=== PATIENT | female | born 1980 | race Two or more races ===

== ENCOUNTER 2016-08-20 17:05 | Emergency (ER) | payer OTHER ==
[~2016-08-20] VITALS: Ht 167.6 cm; Wt 81.6 kg
[~2016-08-20 17:05] MED LIST: ACYCLOVIR400 MG ORAL; AMOXICILLIN500 MG ORAL; ATORVASTATIN CA20 MG ORAL; CIPROFLOXACIN500 M2 ORAL; IBUPROFEN600 M1 PO; IBUPROFEN600 MG ORAL; LEVAQUIN500 MG ORAL; NKM; OFLOXACIN400 MG PO; PHENAZOPYRIDIN200 MG ORAL; VERAPAMIL2.5 MG/1 M IV
[2016-08-20 18:15] LABS: APPEARANCE,URINE CLEAR; KETONES,URINE NEGATIVE (NEGATIVE); LEUKOCYTE ESTERASE ,URINE 1+ (NEGATIVE); NITRITE,URINE NEGATIVE (NEGATIVE); PH,URINE 7 (4.5-8.0); PROTEIN,URINE NEGATIVE (NEGATIVE); UROBILINOGEN,URINE NORMAL MG/DL (0.0-1.0)
[2016-08-20 18:36] LABS: RBC,URINE 0-2 /HPF (0 - 2)
[2016-08-20 18:37] LABS: BACTERIA,URINE FEW /HPF; SQUAMOUS EPITHELIAL CELL,UR FEW /LPF (NONE/OCC)
[2016-08-20] MEDS ORDERED: NITROFURANTOIN100 M2 ORAL (18:40)
[2016-08-20 18:45] VITALS: BP 130/80
--- NOTE | 2016-08-20 22:18 | Emergency Room Report ---
History of Present Illness General Chief Complaint: Vaginal Present Illness HPI The patient is a 36-year-old female presenting for possible vaginal infection. The patient states that she first noticed dysuria, lower abdominal pain, and white discharge 2 days prior. Patient also admits to increased urinary frequency. The lower bowel pain is described as a 3/10 dull ache it does not radiate. Patient denies other symptoms including nausea, vomiting, fever, chills , flank pain, vaginal itching. (RANGEL BARNETT P.A.) Allergies: Coded Allergies: METRONIDAZOLE (Unverified Adverse Reaction, Unknown, 04/10/16) Patient History Past Medical History: see triage record Pertinent Family History: none Reviewed Nursing Documentation: PMH: Agreed, PSxH: Agreed (RANGEL BARNETT P.Elham) Nursing Documentation-PMH Hx Diabetes: No (RANGEL BARNETT.A.) Review of Systems All Other Systems: negative except mentioned in HPI (RANGEL BARNETT P.A.) Physical Exam Vital Signs Date Time Temp Pulse Resp B/P Pulse Ox O2 Delivery O2 Flow Rate FiO2 08/20/16 17:18 97.5 80 20 122/72 99 Room Air Sp02 EP Interpretation: reviewed, normal General Appearance: no apparent distress, alert, GCS 15, non-toxic Head: normocephalic, atraumatic Eyes: bilateral eye PERRL, bilateral eye normal inspection ENT: hearing grossly normal, normal pharynx, no angioedema, normal voice Gastrointestinal: normal bowel sounds, non tender, soft, non-distended, no guarding, no rebound Rectal: deferred Genitourinary: normal inspection, no CVA tenderness Musculoskeletal: back normal, gait/station normal, normal range of motion, non- tender Neurologic: alert, oriented x3, responsive, motor strength/tone normal, sensory intact, speech normal Psychiatric: judgement/insight normal, memory normal, mood/affect normal, no suicidal/homicidal ideation Skin: normal color, no rash, warm/dry, well hydrated Lymphatic: no adenopathy (RANGEL BARNETT P.A.) Medical Decision Making PA Attestation Dr. Nolen is my supervising physician. Patient management was discussed with my supervising physician (RANGEL BARNETT P.ALatrice) Diagnostic Impression: Primary Impression: UTI (lower urinary tract infection) ER Course The patient is a 36-year-old female presenting for possible vaginal infection. Differential diagnosis considered but not limited to: UTI, vaginitis, pyelonephritis, pyelonephrosis, PID, ectopic PE: Vitals WNL. NAD. Abdomen: Normal appearance. Non distended. No ecchymosis. Normal BS. Non TTP. No McBurney point tenderness. No guarding. No CVA tenderness Labs: Urinalysis shows 1+ leuk esterase with few bacteria Pt will be treated for UTI. ER precautions are given and will FU with PMD Laboratory Tests Test 08/20/16 17:40 Urine Color Pale yellow Urine Appearance Clear Urine pH 7 (4.5-8.0) Urine Specific Green[place] 1.015 (1.005-1.035) Urine Protein Negative (NEGATIVE) Urine Glucose (UA) Negative (NEGATIVE) Urine Ketones Negative (NEGATIVE) Urine Occult Blood 1+ (NEGATIVE) H Urine Nitrite Negative (NEGATIVE) Urine Bilirubin Negative (NEGATIVE) Urine Urobilinogen Normal MG/DL (0.0-1.0) Urine Leukocyte Esterase 1+ (NEGATIVE) H Urine RBC 0-2 /HPF (0 - 2) Urine WBC 2-4 /HPF (0 - 2) Urine Squamous Epithelial Cells Few /LPF (NONE/OCC) Urine Bacteria Few /HPF (NONE) Urine HCG, Qualitative Negative Lab Results Impression Urinalysis shows 1+ leuk esterase with few bacteria neg preg (NUVIAANXIY P.A.) Last Vital Signs Date Time Temp Pulse Resp B/P Pulse Ox O2 Delivery O2 Flow Rate FiO2 08/20/16 18:45 98.3 82 18 130/80 98 Room Air Status: improved (RANGEL BARNETT P.A.) Disposition: HOME, SELF-CARE Condition: Improved Scripts Nitrofurantoin Monohyd/M-Cryst* (MACROBID 100 MG*) 100 Mg Capsule 100 MG ORAL EVERY 12 HOURS, #14 CAP Prov: RANGEL BARNETT P.A. 08/20/16 Referrals: [facility],REFERRING (PCP) Patient Instructions: Dysuria Additional Instructions: I discussed my findings with the patient. All questions and concerns have been answered. Treatment and medication compliance have been addressed. I advised the patient that they need to follow up with PMD in 3-5 days. Return to ED if symptoms worsen, new symptoms arise, or if needed for any reason. Patient verbalized understanding of discharge instructions. RANGEL BARNETT Aug 20, 2016 22:18 Alexis Nolen M.D. Aug 22, 2016 02:19
== END 2016-08-20 18:50 | disposition home or self-care (01) ==
LOC: EMR 17:55
DX: N39.0 Urinary tract infection, site not specified (principal); Z88.8 Allergy status to other drugs, medicaments and biological substances
CPT/HCPCS: 81003; 81025; 99284

== ENCOUNTER 2017-09-07 14:58 | Emergency (ER) | payer MEDICAID, OTHER ==
[~2017-09-07] VITALS: Ht 167.6 cm; Wt 81.6 kg
[~2017-09-07 14:58] MED LIST changes: +NITROFURANTOIN100 M2 ORAL
[2017-09-07] MEDS ORDERED: NKM (15:06)
[2017-09-07] MEDS ORDERED: TESSALON PERLE100 MG ORAL (15:20)
[2017-09-07] MEDS ORDERED: IBUPROFEN600 MG ORAL (15:20)
[2017-09-07] MEDS ORDERED: Dexamethasone 4mg/ml vial IM ONE (15:30)
[2017-09-07 15:32] VITALS: BP 119/75
--- NOTE | 2017-09-07 15:43 | Emergency Room Report ---
History of Present Illness General Chief Complaint: Upper Respiratory Illness Source: Patient Present Illness HPI 37-year-old female presents with sore throat cough and runny nose for 2 days. States sore throat, +mild dry cough. Runny nose with clear nasal discharge. Pain with swallowing however has still been able to eat/drink. No change in voice. No pain with extension/movement of neck. Denies fever or chills. +sick contacts. Allergies: Coded Allergies: METRONIDAZOLE (Unverified Adverse Reaction, Unknown, 04/10/16) Patient History Past Medical History: see triage record Past Surgical History: none Pertinent Family History: none Now: No Reviewed Nursing Documentation: PMH: Agreed; PSxH: Agreed Nursing Documentation-PMH Past Medical History: No History, Except For Hx Diabetes: No Review of Systems All Other Systems: negative except mentioned in HPI Physical Exam Vital Signs Date Time Temp Pulse Resp B/P (MAP) Pulse Ox O2 Delivery O2 Flow Rate FiO2 09/07/17 15:01 98.7 69 18 119/75 96 Room Air 98.8 Sp02 EP Interpretation: reviewed, normal General Appearance: alert, GCS 15, non-toxic, mild distress Head: normocephalic, atraumatic Eyes: bilateral eye normal inspection, bilateral eye PERRL, bilateral eye EOMI ENT: no angioedema, uvula midline, pharyngeal erythema, other - No exudates Neck: normal inspection, full range of motion, supple Respiratory: normal inspection, lungs clear, normal breath sounds, no respiratory distress, no retraction, no wheezing, speaking full sentences, chest symmetrical Cardiovascular #1: normal inspection, regular rate, rhythm, no edema, normal capillary refill Cardiovascular #2: 2+ radial (R), 2+ radial (L) Gastrointestinal: normal inspection, non tender, soft, non-distended, no guarding Musculoskeletal: normal inspection, back normal, normal range of motion, non- tender Neurologic: normal inspection, alert, oriented x3, responsive, motor strength/ tone normal, sensory intact, normal gait, speech normal Psychiatric: normal inspection, judgement/insight normal, memory normal Skin: normal inspection, normal color, no rash, warm/dry, well hydrated, normal turgor Medical Decision Making Diagnostic Impression: Primary Impression: Pharyngitis Additional Impression: Upper respiratory infection ER Course 37-year-old female with sore throat cough and runny nose DDX: Viral vs. infectious mononucleosis vs. bacterial pharyngitis vs. allergies Other serious causes such as CARDIOLOGY NURSE PRACTITIONER / RPA / deep space neck infection history/physical most consistent with viral pharyngitis Plan: Motrin, Decadron. Abx not indicated at this time ER course: Patient remains stable in ED. Pt states improvement of pain with motrin. Disposition: Patient will be discharged to home. Patient will follow up with primary care doctor within 5 days. Strict return precautions discussed with patient such as worsening throat pain/swelling, dysphagia, high fever or chills, shortness of breath, abdominal pain, which may indicate severe illness. Patient verbalized understanding and agreed with plan. Please note that this Emergency Department Report was dictated using [employer] car inspector technology software, occasionally this can lead to erroneous entry secondary to interpretation by the dictation equipment. Last Vital Signs Date Time Temp Pulse Resp B/P (MAP) Pulse Ox O2 Delivery O2 Flow Rate FiO2 09/07/17 15:32 98.7 18 119/75 96 Room Air 209.7 09/07/17 15:11 69 Disposition: HOME, SELF-CARE Condition: Improved Scripts Ibuprofen* (MOTRIN*) 600 Mg Tablet 600 MG ORAL Q8H PRN for For Pain, #30 TAB 0 Refills Prov: Rosalva Bledsoe M.D. 09/07/17 Benzonatate* (TESSALON PERLE*) 100 Mg Capsule 100 MG ORAL THREE TIMES A DAY, #21 PERLE Prov: Rosalva Bledsoe M.D. 09/07/17 Patient Instructions: Upper Respiratory Infection, Adult Rosalva Bledsoe M.D. Sep 07, 2017 15:43
== END 2017-09-07 15:40 | disposition home or self-care (01) ==
LOC: EMR 15:37
DX: J02.9 Acute pharyngitis, unspecified (principal); J06.9 Acute upper respiratory infection, unspecified; Z88.8 Allergy status to other drugs, medicaments and biological substances
CPT/HCPCS: 96372; 99284; J1100

== ENCOUNTER 2017-11-26 14:57 | Emergency (ER) | payer MEDICAID ==
[~2017-11-26] VITALS: Ht 167.6 cm; Wt 81.6 kg
[~2017-11-26 14:57] MED LIST changes: +TESSALON PERLE100 MG ORAL
[2017-11-26 15:10] VITALS: BP 161/89
[2017-11-26] MEDS ORDERED: LORazepam Inj 2mg/ml 1ml IV ONE (15:30)
[2017-11-26] MEDS ORDERED: Isovue-370 150ml vial INJ PRN (15:30)
--- NOTE | 2017-11-26 15:30 | Emergency Room Report ---
History of Present Illness General Chief Complaint: Chest Pain Source: Patient Present Illness HPI Patient present with complaints of upper chest pain going up to the upper lung area and now feels radiation to the right neck Pain came on 2 days ago however has been worsening Patient feels more short of breath Denies any back or flank pain However she does describe pleurisy with the chest pain Denies any vomiting or diarrhea denies any fevers or chills Denies any recent travel or calf pain Denies any leg swelling Allergies: Coded Allergies: METRONIDAZOLE (Unverified Adverse Reaction, Unknown, 04/10/16) Patient History Past Medical History: see triage record Pertinent Family History: none Last Menstrual Period: 11/26/17 Now: No Reviewed Nursing Documentation: PMH: Agreed; PSxH: Agreed Nursing Documentation-PMH Past Medical History: No History, Except For Hx Diabetes: No Review of Systems All Other Systems: negative except mentioned in HPI Physical Exam Vital Signs Date Time Temp Pulse Resp B/P (MAP) Pulse Ox O2 Delivery O2 Flow Rate FiO2 11/26/17 15:06 98.4 71 16 140/98 96 Room Air 98.4 Sp02 EP Interpretation: reviewed, normal General Appearance: mild distress - Uncomfortable Head: normocephalic, atraumatic Eyes: bilateral eye PERRL, bilateral eye EOMI ENT: hearing grossly normal, normal pharynx, TMs + canals normal, uvula midline Neck: full range of motion, supple, no meningismus, no bony tend Respiratory: lungs clear, normal breath sounds, no rhonchi, no respiratory distress, no retraction, no accessory muscle use Cardiovascular #1: normal peripheral pulses, regular rate, rhythm, no edema, no gallop, no JVD, no murmur Gastrointestinal: normal bowel sounds, non tender, soft, no mass, no organomegaly, non-distended, no guarding, no hernia, no pulsatile mass, no rebound Genitourinary: no CVA tenderness Musculoskeletal: normal inspection Neurologic: oriented x3, responsive, hearing dog trainer III-XII nml as tested, motor strength/ tone normal, sensory intact Psychiatric: mood/affect normal Skin: normal color, no rash, warm/dry, palpation normal Lymphatic: normal inspection, no adenopathy Medical Decision Making Diagnostic Impression: Primary Impression: Chest pain ER Course Patient is a fairly complex patient with multiple differential to consideration including but not limited to cardiac cardiopulmonary and vascular emergencies Given the patient's description of shortness of breath and description of radiation up into the neck area CT imaging was obtained for further evaluation There are no signs of any pulmonary embolism Patient's EKG was normal along with the blood work as well Patient has done better throughout her stay at this time is stable for close outpatient follow-up Labs Test 11/26/17 15:25 11/26/17 16:06 White Blood Count 10.8 K/UL (4.8-10.8) Red Blood Count 4.81 M/UL (4.20-5.40) Hemoglobin 15.3 G/DL (12.0-16.0) Hematocrit 45.2 % (37.0-47.0) Mean Corpuscular Volume 94 FL (80-99) Mean Corpuscular Hemoglobin 31.8 PG (27.0-31.0) Mean Corpuscular Hemoglobin Concent 33.9 G/DL (32.0-36.0) Red Cell Distribution Width 11.6 % (11.6-14.8) Platelet Count 286 K/UL (150-450) Mean Platelet Volume 10.2 FL (6.5-10.1) Neutrophils (%) (Auto) 53.8 % (45.0-75.0) Lymphocytes (%) (Auto) 36.2 % (20.0-45.0) Monocytes (%) (Auto) 7.2 % (1.0-10.0) Eosinophils (%) (Auto) 1.9 % (0.0-3.0) Basophils (%) (Auto) 0.9 % (0.0-2.0) Sodium Level 137 MMOL/L (136-145) Potassium Level 3.4 MMOL/L (3.5-5.1) Chloride Level 101 MMOL/L (98-107) Carbon Dioxide Level 28 MMOL/L (21-32) Anion Gap 8 mmol/L (5-15) Blood Urea Nitrogen 9 mg/dL (7-18) Creatinine 0.7 MG/DL (0.55-1.30) Estimat Glomerular Filtration Rate > 60 mL/min (>60) Glucose Level 113 MG/DL (74-106) Calcium Level 9.5 MG/DL (8.5-10.1) Total Bilirubin 0.3 MG/DL (0.2-1.0) Aspartate Amino Transf (AST/SGOT) 12 U/L (15-37) Alanine Aminotransferase (ALT/SGPT) 28 U/L (12-78) Alkaline Phosphatase 82 U/L (46-116) Total Protein 8.6 G/DL (6.4-8.2) Albumin 4.1 G/DL (3.4-5.0) Globulin 4.5 g/dL Albumin/Globulin Ratio 0.9 (1.0-2.7) Lipase 116 U/L (73-393) Urine HCG, Qualitative Negative (NEGATIVE) EKG Diagnostic Results Rate: normal Rhythm: NSR ST Segments: no acute changes Rhythm Strip Diag. Results EP Interpretation: yes Rate: 77 Rhythm: NSR, no PVC's, no ectopy CT/MRI/US Diagnostic Results CT/MRI/US Diagnostic Results : Impression CTA chestFindings: Pulmonary arteries are well opacified. No intraluminal filling defects or other findings to suggest acute pulmonary embolus. Normal caliber pulmonary arteries. Normal heart size. No evidence of right ventricular dilatation. No evidence of thoracic aortic aneurysm or dissection. Lungs demonstrate posterior dependent atelectatic changes, are otherwise clear. No infiltrates, effusions, masses, or nodules are demonstrated. Included portions of the thyroid are normal. No mediastinal or hilar mass or adenopathy. Normal esophagus. No pericardial effusion. No axillary or chest wall mass or adenopathy. Included upper abdominal anatomy is unremarkable Impression: Negative Last Vital Signs Date Time Temp Pulse Resp B/P (MAP) Pulse Ox O2 Delivery O2 Flow Rate FiO2 11/26/17 15:06 98.4 71 16 140/98 96 Room Air 98.4 Status: improved Disposition: HOME, SELF-CARE Condition: Improved Additional Instructions: Patient is provided with the discharge instructions notified to follow up with primary doctor in the next 2-3 days otherwise return to the er with any worsening symptoms. Please note that this report is being documented using [employer] technology. This can lead to erroneous entry secondary to incorrect interpretation by the dictating instrument. Thi Tee DO Nov 26, 2017 15:30
[2017-11-26 15:43] LABS: BASOPHILS % (AUTO) 0.9 % (0.0-2.0); EOSINOPHILS % (AUTO) 1.9 % (0.0-3.0); HEMATOCRIT 45.2 % (37.0-47.0); HEMOGLOBIN 15.3 G/DL (12.0-16.0); LYMPHOCYTES % (AUTO) 36.2 % (20.0-45.0); MEAN CORPUSCULAR VOLUME 94 FL (80-99); MONOCYTES % (AUTO) 7.2 % (1.0-10.0); NEUTROPHILS % (AUTO) 53.8 % (45.0-75.0); PLATELET COUNT 286 K/UL (150-450); RED BLOOD COUNT 4.81 M/UL (4.20-5.40); RED CELL DISTRIBUTION WIDTH 11.6 % (11.6-14.8); WHITE BLOOD COUNT 10.8 K/UL (4.8-10.8)
[2017-11-26 15:53] LABS: ANION GAP 8 mmol/L (5-15); BLOOD UREA NITROGEN 9 mg/dL (7-18); CALCIUM 9.5 MG/DL (8.5-10.1); CARBON DIOXIDE 28 MMOL/L (21-32); CHLORIDE 101 MMOL/L (98-107); CREATININE 0.7 MG/DL (0.55-1.30); POTASSIUM 3.4 MMOL/L (3.5-5.1); SODIUM 137 MMOL/L (136-145)
[2017-11-26 15:57] LABS: ALANINE AMINOTRANSFERASE 28 U/L (12-78); ALBUMIN 4.1 G/DL (3.4-5.0); ALBUMIN/GLOBULIN RATIO 0.9 (1.0-2.7); ALKALINE PHOSPHATASE 82 U/L (46-116); ASPARTATE AMINO TRANSFERASE 12 U/L (15-37); BILIRUBIN,TOTAL 0.3 MG/DL (0.2-1.0)
[2017-11-26 17:10] VITALS: BP 154/94
[2017-11-26 18:21] VITALS: BP 148/98
--- NOTE | 2017-11-27 08:31 | Diagnostic Imaging Report ---
ndication: Chest pain Technique: IV administration nonionic contrast. Spiral acquisitions obtained from the lung bases to the lung apices. Multiplanar and 3-D reconstructions were generated. Total dose length product 809.58 mGycm. CTDIvol(s) 25.89 mGy. Dose reduction achieved using automated exposure control Comparison: none Findings: Pulmonary arteries are well opacified. No intraluminal filling defects or other findings to suggest acute pulmonary embolus. Normal caliber pulmonary arteries. Normal heart size. No evidence of right ventricular dilatation. No evidence of thoracic aortic aneurysm or dissection. Lungs demonstrate posterior dependent atelectatic changes, are otherwise clear. No infiltrates, effusions, masses, or nodules are demonstrated. Included portions of the thyroid are normal. No mediastinal or hilar mass or adenopathy. Normal esophagus. No pericardial effusion. No axillary or chest wall mass or adenopathy. Included upper abdominal anatomy is unremarkable Impression: Negative This agrees with the preliminary interpretation provided overnight by [facility] teleradiology service. The CT scanner at [facility] is accredited by the [employer] and the scans are performed using protocols designed to limit radiation exposure to as low as reasonably achievable to attain images of sufficient resolution adequate for diagnostic evaluation.
== END 2017-11-26 18:30 | disposition home or self-care (01) ==
LOC: EMR 18:24
DX: R07.9 Chest pain, unspecified (principal); Z88.0 Allergy status to penicillin
CPT/HCPCS: 36415; 71275; 80053; 81025; 83690; 85025; 96374; 99283; Q9967

== ENCOUNTER 2018-10-12 20:29 | Emergency (ER) | payer MEDICAID ==
[~2018-10-12] VITALS: Ht 167.6 cm; Wt 81.6 kg
[2018-10-12 20:45] VITALS: BP 123/79
--- NOTE | 2018-10-12 20:47 | NUR ---
ER Nurse Note: Pt came from home c/o sore throat and left ear pain. Pt states 9/10 pain. Per pt, pt had strep throat before and stated "I feel like I have it again; it's the same symptoms". Pt a&ox4, VSS, lung sounds clear, on RA, no signs of distress. No active cough. Will continue to montior.
--- NOTE | 2018-10-12 20:49 | Emergency Room Report ---
History of Present Illness General Chief Complaint: Sore Throat Source: Patient Present Illness HPI 2-year-old patient with no significant past medical history here complaining of sore throat, and left ear pain, and productive cough x2 days. Patient denies fever and chills, rhinorrhea, congestion. Rating the pain 7 out of 10 with radiation to the left ear denying tingling and numbness. Taken ibuprofen for pain. denies S OB, wheezing, palpitation, chest pain, nausea vomiting, diarrhea , abdominal pain constipation. denies Recent travel and sick contacts Allergies: Coded Allergies: METRONIDAZOLE (Unverified Adverse Reaction, Unknown, 04/10/16) Patient History Past Medical History: see triage record Past Surgical History: unable to obtain Pertinent Family History: none Last Menstrual Period: 09/18/2018 Now: No Immunizations: UTD Reviewed Nursing Documentation: PMH: Agreed; PSxH: Agreed Nursing Documentation-PMH Past Medical History: No History, Except For Hx Hypertension: Yes - high cholesterol Hx Diabetes: No Review of Systems All Other Systems: negative except mentioned in HPI Physical Exam Vital Signs Date Time Temp Pulse Resp B/P (MAP) Pulse Ox O2 Delivery O2 Flow Rate FiO2 10/12/18 20:38 98.8 76 16 123/79 96 Room Air Sp02 EP Interpretation: reviewed, normal General Appearance: normal inspection, well appearing, no apparent distress, GCS 15 Head: normocephalic, atraumatic Eyes: bilateral eye normal inspection, bilateral eye PERRL ENT: no angioedema, tonsillar swelling, pharyngeal erythema, tonsillar exudate , other - erythma left ear canal Neck: full range of motion, thyroid normal, other - left ant cervical lymphadenopathy Respiratory: normal inspection, chest non-tender, lungs clear, no rhonchi, no wheezing Cardiovascular #1: normal inspection, normal peripheral pulses, regular rate, rhythm, no gallop, no murmur Gastrointestinal: normal inspection, non tender, soft Genitourinary: no CVA tenderness Musculoskeletal: normal inspection Neurologic: normal inspection, alert Psychiatric: normal inspection, judgement/insight normal, memory normal Skin: normal inspection, normal color, no rash, warm/dry Lymphatic: adenopathy - left ant cervical Medical Decision Making PA Attestation All my diagnosis and treatment plans were reviewed ad discussed with my supervising physician Dr. Head Diagnostic Impression: Primary Impression: Strep pharyngitis Additional Impression: Left otitis media ER Course 2-year-old patient with no significant past medical history here complaining of sore throat, and left ear pain, and productive cough x2 days. Patient denies fever and chills, rhinorrhea, congestion. Rating the pain 7 out of 10 with radiation to the left ear denying tingling and numbness. Taken ibuprofen for pain. denies S OB, wheezing, palpitation, chest pain, nausea vomiting, diarrhea, abdominal pain constipation. denies Recent travel and sick contacts Ddx considered but are not limited to: strep pharyngitis, OM, OE, URI, peritonsillar abscess, sinusitis Vital signs: are WNL, pt. is afebrile H&PE are most consistent with: strep pharyngitis, left OM ORDERS: augmentin, mucinex syrup ED INTERVENTIONS: None required at this time. DISCHARGE: At this time pt. is stable for d/c to home. Will provide printed patient care instructions, and any necessary prescriptions. Care plan and follow up instructions have been discussed with the patient prior to discharge. Last Vital Signs Date Time Temp Pulse Resp B/P (MAP) Pulse Ox O2 Delivery O2 Flow Rate FiO2 10/12/18 20:45 98.8 76 16 123/79 96 Room Air Disposition: HOME, SELF-CARE Condition: Stable Scripts Guaifenesin* (GUAIFENESIN) 100 Mg/5 Ml Liquid 5 ML ORAL Q6H, #120 ML 0 Refills Prov: Ugo Joel 10/12/18 Amoxicillin/Potassium Clav 875-125* (AUGMENTIN 875-125 TABLET*) 1 Each Tablet 1 TAB ORAL TWICE A DAY for 10 Days, #20 TAB Prov: Ugo Joel 10/12/18 Patient Instructions: Otitis Media, Adult, [id number] Additional Instructions: Take medication as directed, follow-up with your primary care provider if no improvement of symptoms. Ugo Joel Oct 12, 2018 20:49
[2018-10-12] MEDS ORDERED: GUAIFENESI100 MG/5 M ORAL (20:51)
[2018-10-12] MEDS ORDERED: AUGMENTIN 875-1 EAC1 ORAL (20:51)
[2018-10-12 20:56] VITALS: BP 123/79
--- NOTE | 2018-10-12 20:57 | NUR ---
ER Nurse Note: Pt seen, treated, medically cleared for discharge by ERMD. Discharge instructions given with repeat verbazliaion by pt. Instructed pt to follow up with primary care provider within one week. Pt a&ox4, VSS, no signs of distress. ID band removed. Pt left with all belongings with steady gait via own transportation.
== END 2018-10-12 20:56 | disposition home or self-care (01) ==
LOC: EMR 20:55
DX: J02.0 Streptococcal pharyngitis (principal); H66.92 Otitis media, unspecified, left ear; E78.00 Pure hypercholesterolemia, unspecified; Z88.8 Allergy status to other drugs, medicaments and biological substances
CPT/HCPCS: 99282

== ENCOUNTER 2018-11-13 16:59 | Emergency (ER) | payer MEDICAID ==
[~2018-11-13] VITALS: Ht 167.6 cm; Wt 75.7 kg
[~2018-11-13 16:59] MED LIST changes: +AUGMENTIN 875-1 EAC1 ORAL; +GUAIFENESI100 MG/5 M ORAL
[2018-11-13] MEDS ORDERED: Phenazopyridine 200mg tab ORAL ONE (17:15)
--- NOTE | 2018-11-13 17:27 | NUR ---
ED Nurse Note:sent urine to labs
[2018-11-13 17:34] LABS: APPEARANCE,URINE SLIGHTLY CLOUDY; BILIRUBIN, URINE NEGATIVE (NEGATIVE); GLUCOSE, URINE (UA) NEGATIVE (NEGATIVE); KETONES,URINE 1+ (NEGATIVE); LEUKOCYTE ESTERASE ,URINE 2+ (NEGATIVE); NITRITE,URINE NEGATIVE (NEGATIVE); PH,URINE 6 (4.5-8.0); PROTEIN,URINE 1+ (NEGATIVE); UROBILINOGEN,URINE 1 MG/DL (0.0-1.0)
[2018-11-13 17:37] VITALS: BP 129/77
[2018-11-13 17:38] LABS: COLOR,URINE YELLOW
--- NOTE | 2018-11-13 18:00 | Emergency Room Report ---
History of Present Illness General Chief Complaint: Female Urogenital Problems Source: Patient Present Illness HPI 38-year-old female presents to the emergency department complaining of 8 out of 10 severity dysuria and urinary frequency 2 days. Patient denies fevers, chills abdominal pain, tenderness, vaginal discharge or rash. Patient denies low back pain she denies nausea vomiting or suspicion of . Denies polydipsia. No other aggravating or relieving factors. Allergies: Coded Allergies: METRONIDAZOLE (Unverified Adverse Reaction, Unknown, 04/10/16) Patient History Past Medical History: see triage record Past Surgical History: none Pertinent Family History: none Last Menstrual Period: 09/2018 Now: No Reviewed Nursing Documentation: PMH: Agreed; PSxH: Agreed Nursing Documentation-PMH Past Medical History: No History, Except For Hx Hypertension: Yes - high cholesterol Hx Diabetes: No Review of Systems All Other Systems: negative except mentioned in HPI Physical Exam Vital Signs Date Time Temp Pulse Resp B/P (MAP) Pulse Ox O2 Delivery O2 Flow Rate FiO2 11/13/18 17:03 97.9 65 20 129/77 (94) 98 Room Air Sp02 EP Interpretation: reviewed, normal General Appearance: no apparent distress, alert, GCS 15, non-toxic Head: normocephalic, atraumatic Eyes: bilateral eye normal inspection, bilateral eye PERRL ENT: hearing grossly normal, normal voice Neck: full range of motion Respiratory: lungs clear, normal breath sounds, speaking full sentences Cardiovascular #1: regular rate, rhythm Gastrointestinal: normal bowel sounds, non tender, soft, non-distended, no guarding Genitourinary: normal inspection, no CVA tenderness Musculoskeletal: gait/station normal, normal range of motion, non-tender Neurologic: alert, oriented x3, responsive, motor strength/tone normal, sensory intact, speech normal, grossly normal Psychiatric: judgement/insight normal Skin: normal color, no rash, warm/dry, well hydrated Lymphatic: no adenopathy Medical Decision Making PA Attestation Dr. Head is my supervising Physician whom patient management has been discussed with. Diagnostic Impression: Primary Impression: UTI (lower urinary tract infection) ER Course 38-year-old female presents to the emergency department complaining of 8 out of 10 severity dysuria and urinary frequency 2 days. Patient denies fevers, chills abdominal pain, tenderness, vaginal discharge or rash. Patient denies low back pain she denies nausea vomiting or suspicion of . Denies polydipsia. No other aggravating or relieving factors. Ddx considered but are not limited to UTi , Pyelo, STI, Stone, Cystitis Vital signs: are WNL, pt. is afebrile H&PE are most consistent with UTI ORDERS: - UA labs are attached -- Consistent with UTI - Hcg: Negative ED INTERVENTIONS: Pyridium PO DISCHARGE: At this time pt. is stable for d/c to home. Will provide printed patient care instructions, and any necessary prescriptions. Care plan and follow up instructions have been discussed with the patient prior to discharge. Labs Test 11/13/18 17:15 Urine Color Yellow Urine Appearance Slightly cloudy Urine pH 6 (4.5-8.0) Urine Specific [place] 1.025 (1.005-1.035) Urine Protein 1+ (NEGATIVE) Urine Glucose (UA) Negative (NEGATIVE) Urine Ketones 1+ (NEGATIVE) Urine Blood 3+ (NEGATIVE) Urine Nitrite Negative (NEGATIVE) Urine Bilirubin Negative (NEGATIVE) Urine Urobilinogen 1 MG/DL (0.0-1.0) Urine Leukocyte Esterase 2+ (NEGATIVE) Urine RBC 5-10 /HPF (0 - 2) Urine WBC 20-30 /HPF (0 - 2) Urine Squamous Epithelial Cells Few /LPF (NONE/OCC) Urine Bacteria Few /HPF (NONE) Urine HCG, Qualitative Negative (NEGATIVE) Last Vital Signs Date Time Temp Pulse Resp B/P (MAP) Pulse Ox O2 Delivery O2 Flow Rate FiO2 11/13/18 17:37 97.9 75 20 129/77 98 Room Air Status: improved Disposition: HOME, SELF-CARE Condition: Stable Scripts Phenazopyridine Hcl* (PYRIDIUM*) 100 Mg Tablet 100 MG ORAL THREE TIMES A DAY, #9 TAB Prov: Ines Madden 11/13/18 Nitrofurantoin Monohyd/M-Cryst* (MACROBID 100 MG*) 100 Mg Capsule 100 MG ORAL EVERY 12 HOURS for 5 Days, #10 CAP Prov: Ines Madden 11/13/18 Referrals: NON PHYSICIAN (PCP) Patient Instructions: Urinary Tract Infection Additional Instructions: Take medications as directed. Follow up with a Primary Care Provider in 3-5 days, even if your symptoms have resolved. --Please review list of primary care clinics, if you do not already have a primary care provider Return sooner to ED if new symptoms occur, or current symptoms become worse. - Please note that this Emergency Department Report was dictated using [employer] developer technology software, occasionally this can lead to erroneous entry secondary to interpretation by the dictation equipment. Ines Madden November 13, 2018 18:00
[2018-11-13] MEDS ORDERED: NITROFURANTOIN100 M2 ORAL (18:01)
[2018-11-13] MEDS ORDERED: PHENAZOPYRIDIN100 MG ORAL (18:01)
--- NOTE | 2018-11-13 18:05 | NUR ---
ER DISCHARGE NOTE: Patient is cleared to be discharged per ERMD, pt is aox4, on room air, with stable vital signs. pt was given dc and prescription instructions, pt was able to verbalize understanding, pt is able to ambulate with steady gait. pt took all belongings.
[2018-11-13 18:21] VITALS: BP 129/77
== END 2018-11-13 18:05 | disposition home or self-care (01) ==
LOC: EMR 17:45
DX: N39.0 Urinary tract infection, site not specified (principal); E78.00 Pure hypercholesterolemia, unspecified
CPT/HCPCS: 81003; 81025; 87086; 99283

== ENCOUNTER 2018-12-05 07:18 | Emergency (ER) | payer MEDICAID ==
[~2018-12-05] VITALS: Ht 167.6 cm; Wt 79.8 kg
[~2018-12-05 07:18] MED LIST changes: +PHENAZOPYRIDIN100 MG ORAL
--- NOTE | 2018-12-05 07:40 | NUR ---
ED Nurse Note: Patient walked into ED c/o sorethroat for 3 days. patient reports she has difficulty in swallowing and bilateral earache as well. patient denies any coughing patient is alert awake x4 ambulatory with steady gait. breathing unlabored and even. skin warm to touch
[2018-12-05] MEDS ORDERED: Bicillin LA 1.2MMU/2ML SYR IM ONE (07:45)
[2018-12-05] MEDS ORDERED: Ketorolac 60mg Inj IM ONE (07:45)
[2018-12-05 07:49] VITALS: BP 121/89
--- NOTE | 2018-12-05 07:52 | Emergency Room Report ---
History of Present Illness General Chief Complaint: Sore Throat Source: Patient, Medical Record Present Illness HPI This patient states that for the past 3 days she has had a sore throat. She states that it is very painful to swallow. She also has bilateral ear pain. She has had some intermittent cough. She denies chest pain or shortness of breath. She has subjective fever. She has no other complaints. Allergies: Coded Allergies: METRONIDAZOLE (Unverified Adverse Reaction, Unknown, 04/10/16) Patient History Past Medical History: see triage record, HTN Past Surgical History: Social History: Denies: smoking, alcohol use, drug use Last Menstrual Period: 11/30/2018 Reviewed Nursing Documentation: PMH: Agreed; PSxH: Agreed Nursing Documentation-PMH Past Medical History: No History, Except For Hx Hypertension: Yes - high cholesterol Hx Diabetes: No Review of Systems All Other Systems: negative except mentioned in HPI Physical Exam Vital Signs Date Time Temp Pulse Resp B/P (MAP) Pulse Ox O2 Delivery O2 Flow Rate FiO2 12/05/18 07:31 98.1 91 16 128/81 (97) 98 Room Air Sp02 EP Interpretation: reviewed, normal General Appearance: no apparent distress, alert, GCS 15, non-toxic Head: normocephalic, atraumatic Eyes: bilateral eye normal inspection ENT: hearing grossly normal, no angioedema, normal voice, TMs + canals normal, uvula midline, moist mucus membranes, tonsillar swelling, pharyngeal erythema, tonsillar exudate Neck: full range of motion, supple/symm/no masses Respiratory: no respiratory distress, no retraction, no accessory muscle use, speaking full sentences Rectal: deferred Musculoskeletal: back normal, gait/station normal, normal range of motion, non- tender Neurologic: alert, oriented x3, responsive, motor strength/tone normal, sensory intact, speech normal Psychiatric: judgement/insight normal, memory normal, mood/affect normal, no suicidal/homicidal ideation Skin: normal color, no rash, warm/dry, well hydrated Medical Decision Making Diagnostic Impression: Primary Impression: Acute bacterial tonsillitis Additional Impression: Streptococcal pharyngitis ER Course This patient has a clinical presentation consistent with strep pharyngitis with associated tonsillitis. There is no evidence of peritonsillar abscess or deep neck abscess. There is no airway edema. Overall, this patient had a very benign examination. The patient was given IM penicillin and IM Toradol. I will also give the patient Motrin and Tylenol 3 as a pain medication and anti- inflammatory. I will give the patient a Medrol Dosepak since she does have significant tonsillar swelling. The patient was given return precautions and followup instructions. Last Vital Signs Date Time Temp Pulse Resp B/P (MAP) Pulse Ox O2 Delivery O2 Flow Rate FiO2 12/05/18 07:31 98.1 91 16 128/81 (97) 98 Room Air Status: improved Disposition: HOME, SELF-CARE Condition: Improved Patient Instructions: Strep Throat Gissell Yanes DO Dec 05, 2018 07:52
[2018-12-05] MEDS ORDERED: CEPACOL SORE T1 EAC5 MM (07:55)
[2018-12-05] MEDS ORDERED: IBUPROFEN800 MG ORAL (07:55)
[2018-12-05] MEDS ORDERED: MEDROL DOSEPAK4 MG ORAL (07:55)
[2018-12-05] MEDS ORDERED: ACETAMINOPHEN-1 EAC1 ORAL (07:55)
[2018-12-05 08:12] VITALS: BP 121/89
--- NOTE | 2018-12-05 08:12 | NUR ---
ER DISCHARGE NOTE: Patient is cleared to be discharged per ERMD Dr. Yanes, pt is aox4, on room air, with stable vital signs. pt was given dc and prescription instructions, pt was able to verbalize understanding, pt id band removed without complications. pt is able to ambulate with steady gait. pt took all belongings.
== END 2018-12-05 08:12 | disposition home or self-care (01) ==
LOC: EMR 08:00
DX: J03.00 Acute streptococcal tonsillitis, unspecified (principal); I10 Essential (primary) hypertension; E78.00 Pure hypercholesterolemia, unspecified; Z88.8 Allergy status to other drugs, medicaments and biological substances
CPT/HCPCS: 96372; 99283; J0561

== ENCOUNTER 2019-01-24 18:08 | Emergency (ER) | payer MEDICAID ==
[~2019-01-24] VITALS: Ht 167.6 cm; Wt 68.9 kg
[~2019-01-24 18:08] MED LIST changes: +ACETAMINOPHEN-1 EAC1 ORAL; +CEPACOL SORE T1 EAC5 MM; +IBUPROFEN800 MG ORAL; +MEDROL DOSEPAK4 MG ORAL
[2019-01-24 18:12] VITALS: BP 135/98
--- NOTE | 2019-01-24 18:49 | Diagnostic Imaging Report ---
EXAM: XR Left Finger(s), 2 or More Views CLINICAL HISTORY: TRAUMA TECHNIQUE: Frontal, lateral and oblique views of finger(s) of the left hand. COMPARISON: No relevant prior studies available. FINDINGS: Bones/joints: Comminuted fracture of the tuft of the fourth distal phalanx. Soft tissues: Soft tissue swelling. IMPRESSION: Comminuted fracture of the tuft of the fourth distal phalanx.
[2019-01-24 19:45] VITALS: BP 135/98
--- NOTE | 2019-01-24 19:59 | Emergency Room Report ---
History of Present Illness General Chief Complaint: Upper Extremity Injury Source: Patient Present Illness HPI 38 year old female accompanied by significant other complaining of left fourth finger injury about 1.5 hours ago. Patient states that she slammed car door onto her left hand. Pain is 8 out of 10, sharp and throbbing in quality. Pain worse with pressure and worse with movement, applied ice to affected area with some relief. Patient is right-hand dominant. LMP January 22, 2019 Allergies: Coded Allergies: METRONIDAZOLE (Unverified Adverse Reaction, Unknown, 04/10/16) Patient History Past Medical History: none Past Surgical History: Social History: Reports: smoking, drug use Last Menstrual Period: 01/22/19 Now: No Nursing Documentation-[facility] Past Medical History: No History, Except For Hx Hypertension: Yes - high cholesterol Hx Diabetes: No Review of Systems All Other Systems: negative except mentioned in HPI Physical Exam Vital Signs Date Time Temp Pulse Resp B/P (MAP) Pulse Ox O2 Delivery O2 Flow Rate FiO2 01/24/19 18:12 98.2 97 20 135/98 (110) 96 Room Air Sp02 EP Interpretation: reviewed, normal Respiratory: chest non-tender, lungs clear, normal breath sounds, speaking full sentences Cardiovascular #1: regular rate, rhythm, no edema Musculoskeletal: other - left fourth finger: no deformity, + edema and tender to distal phalanx. pain with ROM due to swelling. Skin: other - left 4th finger: no open wound, small subungual hematoma on proximal nail, affecting 10% of nail. Procedures Splinting Splinting : Consent: Verbal Location: left fourth finger Pre-Made Type: metal Splint: volar Pre-Proc Neuro Vasc Exam: normal Post-Proc Neuro Vasc Exam: normal Patient Tolerated: Well Complications: None Medical Decision Making PA Attestation This patient was seen under the direct supervision of [Dr. Goldman] who directed all aspects of care and diagnostic interpretation. Reaction to Intervention: Improved Diagnostic Impression: Primary Impression: Finger fracture, left Qualified Codes: S62.635A - Displaced fracture of distal phalanx of left ring finger, initial encounter for closed fracture ER Course ED course HPI: 38 year old female accompanied by significant other complaining of left fourth finger injury about 1.5 hours ago. Patient states that she slammed car door onto her left hand. Pain is 8 out of 10, sharp and throbbing in quality. Pain worse with pressure and worse with movement, applied ice to affected area with some relief. Patient is right-hand dominant. Ddx: Contusion of left finger versus finger fracture versus finger dislocation. HPI & PE consistent with: Left finger fracture Orders/ Interventions: Xray shows comminuted fracture of the tuft of the fourth distal phalanx. Metal splint applied to left fourth finger, able to wiggle fingers and neurovascular intact. Case discussed with Dr. Goldman, who agreed with ER course and disposition. Disposition: Patient stable for discharge home. Keep splint on. Follow-up with Ortho in 2 to 3 days for further fracture management. Other X-Ray Diagnostic Results Other X-Ray Diagnostic Results : X-Ray ordered: left finger # of Views/Limited Vs Complete: 3 View Indication: Pain EP Interpretation: Yes PA Xray: Interpretation reviewed, by supervising MD - Dr. Goldman, and agrees with findings. - agree with radiologist interpretation. Interpretation: other - Comminuted fracture of the tuft of the fourth distal phalanx. Electronically Signed by: Bernadette Carpenter PA-C Last Vital Signs Date Time Temp Pulse Resp B/P (MAP) Pulse Ox O2 Delivery O2 Flow Rate FiO2 01/24/19 18:12 98.2 97 20 135/98 96 Room Air Disposition: HOME, SELF-CARE Condition: Improved Patient Instructions: Finger Fracture, [id number] Additional Instructions: Followup with PCP/Ortho in 2 to 3 days for further fracture management or return to ED if worsening symptoms, new symptoms or sudden change in condition Bernadette Carpenter Jan 24, 2019 19:59
== END 2019-01-24 19:45 | disposition home or self-care (01) ==
LOC: EMR 18:20
DX: S62.635A Displaced fracture of distal phalanx of left ring finger, initial encounter for closed fracture (principal); E78.00 Pure hypercholesterolemia, unspecified; F17.200 Nicotine dependence, unspecified, uncomplicated; F19.10 Other psychoactive substance abuse, uncomplicated; Z88.8 Allergy status to other drugs, medicaments and biological substances; W23.0XXA Caught, crushed, jammed, or pinched between moving objects, initial encounter; Y92.810 Car as the place of occurrence of the external cause
CPT/HCPCS: 29130; 99283

== ENCOUNTER 2019-06-17 12:36 | Emergency (ER) | payer MEDICAID ==
[~2019-06-17] VITALS: Ht 167.6 cm; Wt 71.2 kg
[2019-06-17 13:13] VITALS: BP 129/89
--- NOTE | 2019-06-17 13:14 | NUR ---
ED Nurse Note: pt walked in to ER from home due to severe throat pain / x2 days. pt crying and irritibility for pain noted. pt aao x4 and ambulatory. congestion and runny nose noted but no coughing. no cardiac or pulmonary distress noted at this time.
[2019-06-17] MEDS ORDERED: Lidocaine 1% MPF 10mg/ml 5ml INJ ONE (13:30)
--- NOTE | 2019-06-17 13:33 | Emergency Room Report ---
History of Present Illness General Chief Complaint: Sore Throat Source: Patient Present Illness HPI 39-year-old female with no significant past medical history here complaining of 2 days of a 10 out of 10 sore throat and congestion. Reports that she has history of recurrent strep throat and always gets an injection of penicillin at the ER. Patient is crying and saying that is in a lot of pain. Denies fever and chills, recent travel, abdominal pain nausea vomiting. Speaks in full sentences, and has normal vital signs. Appears to be stable. Has not taken medication for symptom relief. Denies neck stiffness, photophobia, headache, fever and chills Allergies: Coded Allergies: METRONIDAZOLE (Unverified Adverse Reaction, Unknown, 04/10/16) Patient History Past Medical History: see triage record Past Surgical History: none Pertinent Family History: none Last Menstrual Period: Jun 05, 2019 Now: No : 0 Para: 0 Reviewed Nursing Documentation: PMH: Agreed; PSxH: Agreed Nursing Documentation-PMH Past Medical History: No History, Except For Hx Hypertension: Yes - high cholesterol Hx Diabetes: No Review of Systems All Other Systems: negative except mentioned in HPI Physical Exam Vital Signs Date Time Temp Pulse Resp B/P (MAP) Pulse Ox O2 Delivery O2 Flow Rate FiO2 06/17/19 13:03 98.2 92 19 129/89 (102) 100 Room Air Sp02 EP Interpretation: reviewed, normal General Appearance: no apparent distress, alert, GCS 15, non-toxic Head: normocephalic, atraumatic ENT: tonsillar swelling, pharyngeal erythema, tonsillar exudate Neck: full range of motion, supple, no meningismus, no bony tend, supple/symm/ no masses, other - Anterior cervical lymphadenopathy Respiratory: chest non-tender, lungs clear, normal breath sounds, no rhonchi, no retraction, no wheezing, speaking full sentences Cardiovascular #1: regular rate, rhythm, no edema, no murmur, normal capillary refill Gastrointestinal: normal bowel sounds, non tender, soft, non-distended, no guarding, no rebound Genitourinary: no CVA tenderness Musculoskeletal: back normal, normal range of motion, gait/station normal, non- tender Neurologic: alert, motor strength/tone normal, oriented x3, sensory intact, responsive, speech normal Psychiatric: judgement/insight normal, memory normal, mood/affect normal, no suicidal/homicidal ideation Skin: no rash, normal color Lymphatic: adenopathy - Anterior cervical Medical Decision Making PA Attestation Diagnosis and treatment plans were reviewed and discussed with my supervising physician Dr. Goldman Diagnostic Impression: Primary Impression: Strep pharyngitis ER Course 39-year-old female with no significant past medical history here complaining of 2 days of a 10 out of 10 sore throat and congestion. Reports that she has history of recurrent strep throat and always gets an injection of penicillin at the ER. Patient is crying and saying that is in a lot of pain. Denies fever and chills, recent travel, abdominal pain nausea vomiting. Speaks in full sentences, and has normal vital signs. Appears to be stable. Has not taken medication for symptom relief. Denies neck stiffness, photophobia, headache, fever and chills Ddx considered but are not limited to: strep pharyngitis, URI, tonsillitis, peritonsillar abscess, influenza Vital signs: are WNL, pt. is afebrile H&PE are most consistent with: Strep pharyngitis ORDERS: Augmentin, ibuprofen, lidocaine spray ED INTERVENTIONS: Rocephin DISCHARGE: At this time pt. is stable for d/c to home. Will provide printed patient care instructions, and any necessary prescriptions. Care plan and follow up instructions have been discussed with the patient prior to discharge. Take medication as directed, follow-up with your primary care provider, if worsening symptoms return to the emergency room Last Vital Signs Date Time Temp Pulse Resp B/P (MAP) Pulse Ox O2 Delivery O2 Flow Rate FiO2 06/17/19 13:13 98.2 80 19 129/89 100 Room Air Disposition: HOME, SELF-CARE Condition: Stable Scripts Ibuprofen* (MOTRIN*) 600 Mg Tablet 600 MG ORAL Q8H PRN for For Pain, #30 TAB 0 Refills Prov: Ugo Joel 06/17/19 Lidocaine HCl 2% Viscous (Lidocaine HCl 2% Viscous) 100 Ml Solution 10 ML ORAL QID, #100 ML Prov: Ugo Joel 06/17/19 Amoxicillin/Potassium Clav 875-125* (AUGMENTIN 875-125 TABLET*) 1 Each Tablet 1 TAB ORAL TWICE A DAY for 10 Days, #20 TAB Prov: Ugo Joel 06/17/19 Referrals: [facility],REFERRING (PCP) Patient Instructions: Strep Throat Additional Instructions: Take medication as directed, follow-up with your primary care provider, worsening symptoms return to the emergency room Ugo Joel Jun 17, 2019 13:32
[2019-06-17] MEDS ORDERED: IBUPROFEN600 MG ORAL (13:34)
[2019-06-17] MEDS ORDERED: LIDOCAINE VISC100 ML ORAL (13:34)
[2019-06-17] MEDS ORDERED: AUGMENTIN 875-1 EAC1 ORAL (13:34)
--- NOTE | 2019-06-17 13:40 | NUR ---
ER DISCHARGE NOTE: Patient is cleared to be discharged per LAITH RAMÍREZ, pt is aox4, on room air, with stable vital signs. pt was given dc and prescription instructions, pt was able to verbalize understanding, pt id band removed without complications. pt is able to ambulate with steady gait. pt took all belongings.
[2019-06-17 13:43] VITALS: BP 129/89
== END 2019-06-17 13:43 | disposition home or self-care (01) ==
LOC: EMR 13:20
DX: J02.0 Streptococcal pharyngitis (principal); E78.00 Pure hypercholesterolemia, unspecified; Z88.8 Allergy status to other drugs, medicaments and biological substances
CPT/HCPCS: 96372; 96374; J0696; Z7502; 99284

== ENCOUNTER 2019-08-03 01:18 | Emergency (ER) | payer MEDICAID ==
[~2019-08-03] VITALS: Ht 167.6 cm; Wt 70.8 kg
[~2019-08-03 01:18] MED LIST changes: +LIDOCAINE VISC100 ML ORAL
[2019-08-03 01:30] VITALS: BP 117/87
--- NOTE | 2019-08-03 01:30 | NUR ---
ED Nurse Note: Pt walked in to ED c/o painful urination x 1 day. Pt also reports foul odor. Stated that her recent sexual partner was diagnosed with STI. Denies hematuria.
--- NOTE | 2019-08-03 01:33 | NUR ---
ED Nurse Note: Urine specimen collected and sent to lab.
[2019-08-03] MEDS ORDERED: Azithromycin 250mg tab ORAL ONE (01:45)
[2019-08-03] MEDS ORDERED: Lidocaine 1% MPF 10mg/ml 5ml INJ ONE (01:45)
[2019-08-03 02:10] LABS: BILIRUBIN, URINE NEGATIVE (NEGATIVE); GLUCOSE, URINE (UA) NEGATIVE (NEGATIVE); KETONES,URINE NEGATIVE (NEGATIVE); NITRITE,URINE NEGATIVE (NEGATIVE); PH,URINE 6 (4.5-8.0); PROTEIN,URINE 1+ (NEGATIVE); UROBILINOGEN,URINE 1 MG/DL (0.0-1.0)
[2019-08-03 02:42] LABS: APPEARANCE,URINE SLIGHTLY CLOUDY; COLOR,URINE YELLOW; LEUKOCYTE ESTERASE ,URINE 1+ (NEGATIVE)
[2019-08-03] MEDS ORDERED: CEPHALEXIN500 MG ORAL (02:52)
[2019-08-03 02:55] VITALS: BP 117/87
--- NOTE | 2019-08-03 02:55 | NUR ---
ED Nurse Note: Pt cleared by ERMD for discharge. DC instructions/prescription was given and explained to pt and verbalized understanding of teachings. All medical deviecs such as ID band removed. Pt is AAO x4, ambulatory and left with all personal belongings.
--- NOTE | 2019-08-03 04:47 | Emergency Room Report ---
History of Present Illness General Chief Complaint: Female Urogenital Problems Source: Patient Present Illness HPI 39-year-old female presents ED for evaluation of dysuria. X1 day. Burning sensation, 5 out of 10, nonradiating. Denies flank pain. Denies nausea or vomiting. States that her partner was diagnosed with an STD. Denies any discharge. Denies any abdominal pain. No other aggravating relieving factors. Denies any other associated symptoms Allergies: Coded Allergies: METRONIDAZOLE (Unverified Adverse Reaction, Unknown, 04/10/16) Patient History Past Medical History: none Past Surgical History: none Pertinent Family History: none Social History: Denies: smoking, alcohol use, drug use Last Menstrual Period: 07/13/19 Now: No Immunizations: UTD Reviewed Nursing Documentation: PMH: Agreed; PSxH: Agreed Nursing Documentation-PMH Past Medical History: No History, Except For Hx Hypertension: Yes - high cholesterol Hx Diabetes: No Review of Systems All Other Systems: negative except mentioned in HPI Physical Exam Vital Signs Date Time Temp Pulse Resp B/P (MAP) Pulse Ox O2 Delivery O2 Flow Rate FiO2 08/03/19 01:22 99.1 103 14 117/87 (97) 98 Room Air General Appearance: well appearing, no apparent distress Head: normocephalic, atraumatic ENT: hearing grossly normal, normal voice Neck: full range of motion, supple Respiratory: no respiratory distress, speaking full sentences Musculoskeletal: no calf tenderness Neurologic: alert, normal gait Psychiatric: mood/affect normal Skin: no rash Medical Decision Making Diagnostic Impression: Primary Impression: Concern about STD in female without diagnosis Additional Impression: UTI (lower urinary tract infection) ER Course Hospital Course 39 year-old female presents to ED complaining of dysuria. concern for STD Differential diagnoses include: UTI, cystitis, pyelonephritis Clinical course Patient placed on stretcher. After initial history and physical I ordered UA, urine . UA + bacteria. I discussed findings with patient. Concern for STD. We will treat with Rocephin/azithromycin in the ED. Will prescribe antibiotics for UTI. Safe for discharge with close outpatient follow-up. States she has a PMD Diagnosis - UTI, concern about STD Stable and discharged home with prescriptions for Rx Keflex. Instructed to followup with PMD. Return to ED if symptoms recur or worsen Labs Test 08/03/19 01:30 Urine Color Yellow Urine Appearance Slightly cloudy Urine pH 6 (4.5-8.0) Urine Specific [place] 1.025 (1.005-1.035) Urine Protein 1+ (NEGATIVE) Urine Glucose (UA) Negative (NEGATIVE) Urine Ketones Negative (NEGATIVE) Urine Blood 2+ (NEGATIVE) Urine Nitrite Negative (NEGATIVE) Urine Bilirubin Negative (NEGATIVE) Urine Urobilinogen 1 MG/DL (0.0-1.0) Urine Leukocyte Esterase 1+ (NEGATIVE) Urine RBC 5-10 /HPF (0 - 2) Urine WBC 5-10 /HPF (0 - 2) Urine Squamous Epithelial Cells Many /LPF (NONE/OCC) Urine Bacteria Moderate /HPF (NONE) Urine HCG, Qualitative Negative (NEGATIVE) Last Vital Signs Date Time Temp Pulse Resp B/P (MAP) Pulse Ox O2 Delivery O2 Flow Rate FiO2 08/03/19 02:55 99.1 103 14 117/87 98 Room Air Status: improved Disposition: HOME, SELF-CARE Condition: Stable Scripts Cephalexin* (KEFLEX*) 500 Mg Capsule 500 MG ORAL EVERY 6 HOURS for 7 Days, #28 CAP Prov: Rufino Mcduffie MD 08/03/19 Referrals: NOT CHOSEN [facility]/,REFERRING (PCP) [facility] Patient Instructions: Urinary Tract Infection, Cervicitis, [id number] Rufino Mcduffie MD Aug 03, 2019 04:47
== END 2019-08-03 02:55 | disposition home or self-care (01) ==
LOC: EMR 02:00
DX: N39.0 Urinary tract infection, site not specified (principal); E78.00 Pure hypercholesterolemia, unspecified; Z88.8 Allergy status to other drugs, medicaments and biological substances
CPT/HCPCS: 81003; 81025; 87086; 96372; 96374; J0696; Q0144; Z7502; 99284

== ENCOUNTER 2019-10-31 20:56 | Emergency (ER) | payer MEDICAID ==
[~2019-10-31] VITALS: Ht 167.6 cm; Wt 59.0 kg
[~2019-10-31 20:56] MED LIST changes: +CEPHALEXIN500 MG ORAL
--- NOTE | 2019-10-31 21:20 | NUR ---
ED Nurse Note: pt presents to ED c/o suprapubic pain and dysuria x 2 days. pt states that she has been on her period and put a tampon in 2 days ago and inserted another one without removing the first. pt feels there is still a tampon stuck there. pt is now reporting 7/10 suprapubic px that radiates to the flanks. pt states that it hurts to urinate and only a "small amount" comes out when she tries to void. no fever or chills, N/V at this time
[2019-10-31 21:22] VITALS: BP 125/88
--- NOTE | 2019-10-31 22:00 | Emergency Room Report ---
History of Present Illness General Chief Complaint: Female Urogenital Problems Source: Patient Present Illness HPI Patient believes she lost a tampon. She had a second 1 in and the first 1 was unobtainable to her. She has had a smelly discharge slight itching in the area and minimal discomfort. She is on her menstruation at this time does not believe she is . She rates the discomfort 7/10, some aching in the vaginal area and lower abdomen. She denies any fevers or chills. There is no rash. She denies dizziness when standing. There is no nausea, vomiting or diarrhea. No chest pain, palpitations, dysuria, shortness of breath, joint pain, dpression , anxiety, visual changes, dizziness, headache. 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: current Nursing Documentation-PMH Hx Hypertension: Yes - high cholesterol Hx Diabetes: No Review of Systems All Other Systems: negative except mentioned in HPI Physical Exam Vital Signs Date Time Temp Pulse Resp B/P (MAP) Pulse Ox O2 Delivery O2 Flow Rate FiO2 10/31/19 21:09 98.2 83 18 125/88 (100) 96 Room Air Sp02 EP Interpretation: reviewed, normal General Appearance: well appearing, no apparent distress, GCS 15, non-toxic Head: normocephalic Eyes: bilateral eye normal inspection, bilateral eye PERRL ENT: moist mucus membranes Neck: full range of motion, supple Respiratory: lungs clear Cardiovascular #1: regular rate, rhythm Gastrointestinal: normal inspection, non tender, soft, non-distended Genitourinary: no CVA tenderness, cervix normal, ext genitalia/vag normal, os closed, other - Tampon present, foul odor and menstrual blood Musculoskeletal: gait/station normal Neurologic: alert, grossly normal Psychiatric: mood/affect normal Skin: no rash, warm/dry, other - Tattoo neck Medical Decision Making Diagnostic Impression: Primary Impression: Vaginal foreign body Qualified Codes: T19.2XXA - Foreign body in vulva and vagina, initial encounter Additional Impression: UTI (urinary tract infection) Qualified Codes: N30.00 - Acute cystitis without hematuria ER Course Patient presents with alleged alleged tampon vaginally. Differential includes toxic shock, vaginal foreign body, urinary tract infection amongst others. Based on exam toxic shock syndrome is excluded. She also does not have cervical motion tenderness. Urinalysis indicated. Removal of tampon during pelvic exam. Patient stated she had to go to work. I discussed that she may need antibiotics. She agreed that she could be reached by phone. UTI with labs. Wet mount negative. Antibiotics transmitted to pharmacy. Several attempts to contact patient. Phone busy. Laboratory Tests Test 10/31/19 21:31 Urine Color Yellow Urine Appearance Cloudy Urine pH 6.5 (4.5-8.0) Urine Specific [place] 1.020 (1.005-1.035) Urine Protein 1+ (NEGATIVE) H Urine Glucose (UA) Negative (NEGATIVE) Urine Ketones 1+ (NEGATIVE) H Urine Blood 3+ (NEGATIVE) H Urine Nitrite Negative (NEGATIVE) Urine Bilirubin Negative (NEGATIVE) Urine Urobilinogen 1 MG/DL (0.0-1.0) H Urine Leukocyte Esterase 3+ (NEGATIVE) H Urine RBC 40-60 /HPF (0 - 2) H Urine WBC 40-60 /HPF (0 - 2) H Urine Squamous Epithelial Cells Few /LPF (NONE/OCC) Urine Bacteria Many /HPF (NONE) H Urine HCG, Qualitative Negative (NEGATIVE) Microbiology Date/Time Source Procedure Growth Status 10/31/19 22:25 Vaginal Wet Prep - Final Complete Last Vital Signs Date Time Temp Pulse Resp B/P (MAP) Pulse Ox O2 Delivery O2 Flow Rate FiO2 10/31/19 22:56 98.2 87 18 125/88 96 Room Air Status: improved Disposition: HOME, SELF-CARE Condition: Improved Scripts Trimethoprim/Sulfamethoxazole 160/800* (BACTRIM DS TABLET*) 1 Each Tablet 1 TAB ORAL Q12H, #14 TAB 0 Refills Prov: Alexis Nolen MD 11/01/19 Alexis Nolen MD October 31, 2019 22:00
--- NOTE | 2019-10-31 22:15 | NUR ---
ED Nurse Note: ERMD at pt bedside performing pelvic exam. wet mount sent to lab, removed 1 tampon, pt tolerated procedure well.
[2019-10-31 22:47] LABS: APPEARANCE,URINE CLOUDY; BILIRUBIN, URINE NEGATIVE (NEGATIVE); GLUCOSE, URINE (UA) NEGATIVE (NEGATIVE); KETONES,URINE 1+ (NEGATIVE); LEUKOCYTE ESTERASE ,URINE 3+ (NEGATIVE); NITRITE,URINE NEGATIVE (NEGATIVE); PH,URINE 6.5 (4.5-8.0); PROTEIN,URINE 1+ (NEGATIVE); UROBILINOGEN,URINE 1 MG/DL (0.0-1.0)
[2019-10-31 22:56] VITALS: BP 125/88
--- NOTE | 2019-10-31 22:56 | NUR ---
ER DISCHARGE NOTE: Patient is cleared to be discharged per ERMD, pt is aox4, on room air, with stable vital signs. pt was given dc and prescription instructions, pt was able to verbalize understanding, pt id band removed without complications. pt is able to ambulate with steady gait. pt took all belongings.
[2019-10-31 23:12] LABS: COLOR,URINE YELLOW
[2019-11-01] MEDS ORDERED: BACTRIM DS TAB1 EAC1 ORAL (00:10)
== END 2019-10-31 22:56 | disposition home or self-care (01) ==
LOC: EMR 21:29
DX: T19.2XXA Foreign body in vulva and vagina, initial encounter (principal); N30.00 Acute cystitis without hematuria; Z88.8 Allergy status to other drugs, medicaments and biological substances; F17.200 Nicotine dependence, unspecified, uncomplicated; E78.00 Pure hypercholesterolemia, unspecified; X58.XXXA Exposure to other specified factors, initial encounter; Y92.9 Unspecified place or not applicable
CPT/HCPCS: 81003; 81025; 87086; 87210; Z7502; 99283

== ENCOUNTER 2019-12-05 09:22 | Emergency (ER) | payer MEDICAID ==
[~2019-12-05] VITALS: Ht 165.1 cm; Wt 59.0 kg
[~2019-12-05 09:22] MED LIST changes: +BACTRIM DS TAB1 EAC1 ORAL
[2019-12-05 09:25] VITALS: BP 126/94
[2019-12-05] MEDS ORDERED: Bicillin LA 1.2MMU/2ML SYR IM ONE (09:45)
--- NOTE | 2019-12-05 09:45 | Emergency Room Report ---
History of Present Illness General Chief Complaint: Sore Throat Source: Patient Present Illness HPI Patient is a 39-year-old female past medical history of strep throat who presents to the ER complaining of sore throat for the past 4 days. Patient denies any fever or chills. She denies any neck stiffness or rash. She denies any drooling or difficulty swallowing. She states that it is painful to swallow. She denies any chest pain or shortness of breath. She denies any cough. Patient complains of mild generalized headache. She denies any blurry vision or focal weakness. She denies any altered mental status. Patient states that she always gets a shot of penicillin and her symptoms resolved. Allergies: Coded Allergies: No Known Allergies (Unverified , 12/05/19) COVID-19 Screening Contact w/high risk pt: No Recent Travel to affected area: No Experienced COVID-19 symptoms?: No COVID-19 symptoms experienced: Cough COVID-19 Testing performed ART SUPERVISOR: No Patient History Last Menstrual Period: 11/02/19 Reviewed Nursing Documentation: PMH: Agreed; PSxH: Agreed Nursing Documentation-PMH Past Medical History: No Stated History Hx Hypertension: Yes - high cholesterol Hx Diabetes: No Review of Systems All Other Systems: negative except mentioned in HPI Physical Exam Vital Signs Date Time Temp Pulse Resp B/P (MAP) Pulse Ox O2 Delivery O2 Flow Rate FiO2 12/05/19 09:25 98.4 88 18 126/94 97 Room Air Sp02 EP Interpretation: reviewed, normal General Appearance: no apparent distress, alert, GCS 15, non-toxic Head: normocephalic, atraumatic Eyes: bilateral eye normal inspection, bilateral eye PERRL ENT: no angioedema, moist mucus membranes, tonsillar swelling, tonsillar exudate, other - No peritonsillar abscess or cellulitis Neck: full range of motion, supple/symm/no masses Respiratory: chest non-tender, lungs clear, normal breath sounds, speaking full sentences Cardiovascular #1: regular rate, rhythm Gastrointestinal: normal bowel sounds, non tender, soft, non-distended, no guarding, no rebound Rectal: deferred Musculoskeletal: normal range of motion Neurologic: alert, motor strength/tone normal, oriented x3, sensory intact, responsive, speech normal Psychiatric: no suicidal/homicidal ideation Skin: no rash Medical Decision Making Diagnostic Impression: Primary Impression: Pharyngitis ER Course Patient given intramuscular penicillin for suspected strep pharyngitis. After discussing risks and benefits of further diagnostics, treatment plans, as well as indications for and risks of admission, the patient is agreeable to being discharged home. I have explained that their evaluation and treatment in the emergency department today is an important step towards them achieving better health but that their evaluation today is not intended to replace further evaluation and treatment by a physician in their local clinic. I have explained that while the current findings suggest no immediate life threatening emergency they will require further evaluation and treatment by a physician of their choice in their area. They understand that it will be necessary for them to review the final reports of their ED visit with their clinic physician. We have reviewed indications for return to the Emergency Department. I have explained that additional time may need to pass and/or additional testing as an outpatient may be necessary before a definitive diagnosis can be made. They tell me they are willing to follow up as instructed within the timeframe I recommend. They appear to understand what we discussed. Additionally they understand that if they are unable to be seen by an outpatient physician they are welcome, and in fact should, return to the Emergency Department for a repeat evaluation. The patient is stable at time of discharge. Last Vital Signs Date Time Temp Pulse Resp B/P (MAP) Pulse Ox O2 Delivery O2 Flow Rate FiO2 12/05/19 09:25 98.4 88 18 126/94 (105) 97 Room Air Disposition: HOME, SELF-CARE Condition: Stable Scripts No Active Prescriptions or Reported Meds Referrals: [facility] Patient Instructions: Tonsillitis Additional Instructions: The patient was provided with discharge instructions, notified to follow-up with a primary care doctor and or specialist in the next 24-48 hours, and to return to the ED if they have worsening of their symptoms. Please note that this report is being documented using [employer] technology. This can lead to erroneous entry secondary to incorrect interpretation by the dictating instrument. Debby Soto M.D. Dec 05, 2019 09:45
[2019-12-05 09:53] VITALS: BP 135/78
== END 2019-12-05 09:54 | disposition home or self-care (01) ==
LOC: EMR 09:30
DX: J02.9 Acute pharyngitis, unspecified (principal); E78.00 Pure hypercholesterolemia, unspecified
CPT/HCPCS: J0561; Z7502; 99282

== ENCOUNTER 2020-01-24 21:55 | Emergency (ER) | payer MEDICAID ==
[~2020-01-24] VITALS: Ht 167.6 cm; Wt 68.0 kg
--- NOTE | 2020-01-24 22:06 | NUR ---
ED Nurse Note: pt presents to ED from home with a head lac s/p fall. pt states that she slipped and fell at her cousin's pool [employer]. she has a lac to the back of her head, denies any LOC or being on any blood thinners. no other complaints at this time
[2020-01-24 22:07] VITALS: BP 152/97
--- NOTE | 2020-01-24 22:10 | NUR ---
ED Nurse Note: ERMD at pt bedside performing lac repair
[2020-01-24] MEDS ORDERED: HYDROcodone/Acetamin 5/325 tab ORAL ONE (22:15)
--- NOTE | 2020-01-24 22:15 | Emergency Room Report ---
History of Present Illness General Chief Complaint: Multiple Trauma/Fall Source: Patient Present Illness HPI This a 39-year-old female with no past medical history. She presents with chief complaint of head injury. She was at the pool and slipped and fell backwards. She hit her head. This occurred just prior to arrival. She sustained a laceration to the back of her head. No loss of consciousness. No fever chills. Pain is 8 out of 10. Worse with palpation. Better with rest. There was bleeding initially. No focal deficit. Allergies: Coded Allergies: METRONIDAZOLE (Verified Allergy, Unknown, 01/24/20) COVID-19 Screening Contact w/high risk pt: No Recent Travel to affected area: No Experienced COVID-19 symptoms?: Yes COVID-19 symptoms experienced: Cough COVID-19 Testing performed COLLECTION TECHNICIAN: No Patient History Past Medical History: see triage record, old chart reviewed Past Surgical History: none Pertinent Family History: none Social History: Denies: smoking Now: No Immunizations: other Reviewed Nursing Documentation: PMH: Agreed; PSxH: Agreed Nursing Documentation-PMH Hx Hypertension: Yes - high cholesterol Hx Diabetes: No Review of Systems Eye: Denies: eye pain, blurred vision ENT: Denies: ear pain, nose congestion, throat swelling Respiratory: Denies: cough, shortness of breath Cardiovascular: Denies: chest pain, palpitations Gastrointestinal: Denies: abdominal pain, diarrhea, nausea, vomiting Musculoskeletal: Denies: back pain, joint pain Skin: Denies: rash Neurological: Denies: headache, numbness Endocrine: Denies: increased thirst, increased urine Hematologic/Lymphatic: Denies: easy bruising All Other Systems: negative except mentioned in HPI Physical Exam Vital Signs Date Time Temp Pulse Resp B/P (MAP) Pulse Ox O2 Delivery O2 Flow Rate FiO2 01/24/20 21:58 98.6 99 16 152/97 (115) 97 Room Air Vitals with high blood pressure Sp02 EP Interpretation: reviewed, normal General Appearance: well appearing, no apparent distress, alert Head: normocephalic, other - A 3 cm laceration to the midline of the occipital scalp. Eyes: bilateral eye PERRL, bilateral eye EOMI ENT: hearing grossly normal, normal pharynx Neck: full range of motion, supple, no meningismus Respiratory: chest non-tender, lungs clear, normal breath sounds Cardiovascular #1: regular rate, rhythm, no murmur Gastrointestinal: normal bowel sounds, non tender, no mass, no organomegaly, no bruit, non-distended Musculoskeletal: back normal, normal range of motion, gait/station normal Psychiatric: mood/affect normal Procedures Laceration/Wound Repair Laceration/Wound Repair : Consent: Verbal Wound Location: head Wound's Depth, Shape: linear Wound Length (cm): 3 Wound Explored: clean Wound Repaired With: radha Number of Sutures: 5 Medical Decision Making Diagnostic Impression: Primary Impression: Head injury, acute Qualified Codes: S09.90XA - Unspecified injury of head, initial encounter Additional Impression: Occipital scalp laceration Qualified Codes: S01.01XA - Laceration without foreign body of scalp, initial encounter ER Course Patient presents with a fall with a scalp injury and scalp laceration. No skull fracture. No intracranial hemorrhage. CT/MRI/US Diagnostic Results CT/MRI/US Diagnostic Results : Imaging Test Ordered: CT head Impression Negative per radiologist. Last Vital Signs Date Time Temp Pulse Resp B/P (MAP) Pulse Ox O2 Delivery O2 Flow Rate FiO2 01/24/20 22:07 99 16 Room Air 01/24/20 22:07 98.6 152/97 97 Status: improved Disposition: HOME, SELF-CARE Condition: Stable Scripts Ibuprofen* (MOTRIN*) 600 Mg Tablet 600 MG ORAL Q6H PRN for For Pain, #30 TAB 0 Refills Prov: Oseas Fine MD 01/24/20 Hydrocodone/Acetaminophen 5-325* (HYDROCODONE/ACETAMINOPHEN 5-325*) 1 Each Tablet 1 TAB ORAL Q6H PRN for For Pain, #12 TAB 0 Refills Prov: Oseas Fine MD 01/24/20 Referrals: NON PHYSICIAN (PCP) Additional Instructions: Follow-up with your doctor in 7 days for staple removal. Return if symptoms worsen. Oseas Fine MD Jan 24, 2020 22:15
[2020-01-24] MEDS ORDERED: IBUPROFEN600 M1 ORAL (22:17)
[2020-01-24] MEDS ORDERED: HYDROCODON-ACE1 EA15 ORAL (22:17)
--- NOTE | 2020-01-24 22:17 | NUR ---
ED Nurse Note: pt taken to CT via wheelchair
--- NOTE | 2020-01-24 22:30 | NUR ---
ED Nurse Note: pt returned from CT, able to ambulate to restroom with steady gait
--- NOTE | 2020-01-24 22:48 | Diagnostic Imaging Report ---
EXAM: CT Head Without Intravenous Contrast CLINICAL HISTORY: TRAUMA TECHNIQUE: Axial computed tomography images of the head/brain without intravenous contrast. CTDI is 53.4 mGy and DLP is 1045.5 mGy-cm. One or more of the following dose reduction techniques were used: automated exposure control, adjustment of the mA and/or kV according to patient size, use of iterative reconstruction technique. COMPARISON: none FINDINGS: Brain: Unremarkable. No hemorrhage. No significant white matter disease. No edema. Ventricles: Unremarkable. No ventriculomegaly. Bones/joints: Unremarkable. No acute fracture. Soft tissues: Stapled laceration in the left occipital scalp. Sinuses: Unremarkable as visualized. No acute sinusitis. Mastoid air cells: Unremarkable as visualized. No mastoid effusion. IMPRESSION: Stapled laceration in the left occipital scalp. Otherwise unremarkable noncontrast head CT with no acute intracranial findings.
[2020-01-24 23:00] VITALS: BP 152/97
--- NOTE | 2020-01-24 23:00 | NUR ---
ER DISCHARGE NOTE: Patient is cleared to be discharged per ERMD, pt is aox4, on room air, with stable vital signs. pt was given dc and prescription instructions, pt was able to verbalize understanding, pt id band removed without complications. pt is able to ambulate with steady gait. pt took all belongings and left with her boyfriend
== END 2020-01-24 23:00 | disposition home or self-care (01) ==
LOC: EMR 22:03
DX: S09.90XA Unspecified injury of head, initial encounter (principal); S01.01XA Laceration without foreign body of scalp, initial encounter; W01.0XXA Fall on same level from slipping, tripping and stumbling without subsequent striking against object, initial encounter; Y92.9 Unspecified place or not applicable; Z88.8 Allergy status to other drugs, medicaments and biological substances; E78.00 Pure hypercholesterolemia, unspecified
CPT/HCPCS: 12002; 70450; Z7502; 99284

== ENCOUNTER 2020-02-05 23:48 | Emergency (ER) | payer MEDICAID ==
[~2020-02-05] VITALS: Ht 167.6 cm; Wt 68.0 kg
[~2020-02-05 23:48] MED LIST changes: +HYDROCODON-ACE1 EA15 ORAL; +IBUPROFEN600 M1 ORAL
[2020-02-05 23:52] VITALS: BP 131/85
--- NOTE | 2020-02-06 00:10 | NUR ---
ED Nurse Note: patient currently not in room.
--- NOTE | 2020-02-06 00:15 | NUR ---
ED Nurse Note: per patient, she had an emergency matter to attend. unable to assess patient. patient ambulated out of ED talking on the phone. patient has taken all belongings with her.
--- NOTE | 2020-02-06 19:24 | Emergency Room Report ---
History of Present Illness General Chief Complaint: Wound Recheck/Suture Removal Source: Patient Present Illness HPI Patient here for removal of radha. She had a head injury 01/23. Allergies: Coded Allergies: METRONIDAZOLE (Verified Allergy, Unknown, 01/24/20) COVID-19 Screening Contact w/high risk pt: No Recent Travel to affected area: No Experienced COVID-19 symptoms?: No COVID-19 symptoms experienced: Cough COVID-19 Testing performed BRANCH EXAMINER: No Patient History Past Medical History: see triage record Last Menstrual Period: 01/10/2020 Now: No : 4 Para: 4 Reviewed Nursing Documentation: PMH: Agreed; PSxH: Agreed Nursing Documentation-PMH Past Medical History: No Stated History Hx Hypertension: Yes - high cholesterol Hx Diabetes: No Physical Exam Vital Signs Date Time Temp Pulse Resp B/P (MAP) Pulse Ox O2 Delivery O2 Flow Rate FiO2 02/05/20 23:52 98.8 99 18 131/85 (100) 98 Room Air Sp02 EP Interpretation: reviewed, normal Medical Decision Making Diagnostic Impression: [facility] Patient had left to her car. I called her and she said she would return. Patient then refused to return to ED. Last Vital Signs Date Time Temp Pulse Resp B/P (MAP) Pulse Ox O2 Delivery O2 Flow Rate FiO2 02/05/20 23:52 98.8 99 18 131/85 (100) 98 Room Air Status: unchanged Disposition: LEFT W/OUT BEING SEEN Condition: Unknown Referrals: [facility],REFERRING (PCP) Alexis Nolen MD Feb 06, 2020 19:23
== END 2020-02-06 00:15 | disposition left against medical advice (07) ==
LOC: EMR 02-06 00:15
DX: Z53.21 Procedure and treatment not carried out due to patient leaving prior to being seen by health care provider (principal); E78.00 Pure hypercholesterolemia, unspecified; Z88.8 Allergy status to other drugs, medicaments and biological substances

== ENCOUNTER 2020-02-06 13:06 | Emergency (ER) | payer MEDICAID ==
[~2020-02-06] VITALS: Ht 167.6 cm; Wt 68.0 kg
[2020-02-06 13:15] VITALS: BP 118/80
--- NOTE | 2020-02-06 13:25 | NUR ---
ED Nurse Note: Pt from home and came in for radha removal on back of her head. Radha done on last week with no signs/symptoms of infection. AAO x4 and ambulatory.
[2020-02-06 13:40] VITALS: BP 124/76
--- NOTE | 2020-02-06 13:40 | NUR ---
ER DISCHARGE NOTE: Patient is cleared to be discharged per ERMD, pt is aox4, on room air, with stable vital signs. pt was given dc instructions, pt was able to verbalize understanding, pt id band removed. pt is able to ambulate with steady gait. pt took all belongings.
--- NOTE | 2020-02-06 13:55 | Emergency Room Report ---
History of Present Illness General Chief Complaint: Wound Recheck/Suture Removal Source: Patient Present Illness HPI Patient 39-year-old female presents for staple removal. Patient had recent laceration repair at the emergency department. Denies any current complaints. Denies any increased headache. Had radha to the back of her head. Reports having no current complaints. Allergies: Coded Allergies: METRONIDAZOLE (Verified Allergy, Unknown, 01/24/20) COVID-19 Screening Contact w/high risk pt: No Recent Travel to affected area: No Experienced COVID-19 symptoms?: No COVID-19 symptoms experienced: Cough COVID-19 Testing performed EKG MONITOR TECH: No Patient History Past Medical History: see triage record Now: No Reviewed Nursing Documentation: PMH: Agreed; PSxH: Agreed Nursing Documentation-PMH Past Medical History: No History, Except For Hx Hypertension: Yes - high cholesterol Hx Diabetes: No Review of Systems All Other Systems: negative except mentioned in HPI Physical Exam Vital Signs Date Time Temp Pulse Resp B/P (MAP) Pulse Ox O2 Delivery O2 Flow Rate FiO2 02/06/20 13:15 99.0 85 15 118/80 (93) 98 Room Air General Appearance: well appearing, no apparent distress, alert, GCS 15 Head: normocephalic, other - Healed laceration to the occipital scalp ENT: hearing grossly normal, normal voice Neck: full range of motion, supple Respiratory: no respiratory distress, speaking full sentences Cardiovascular #1: normal inspection Musculoskeletal: digits/nails normal Neurologic: alert, motor strength/tone normal, assembly and packing supervisor III-XII nml as tested, oriented x3, normal gait Psychiatric: mood/affect normal Skin: no rash Medical Decision Making Diagnostic Impression: Primary Impression: Removal of staple ER Course Patient presented for occipital scalp laceration staple removal differential diagnosis included was not limited to. Healing wound, infection among others. Patient has a benign exam and does not appear to require any imaging or laboratory testing at this time. Patient's wound appears to be well-healed. Radha removed without incident. Patient tolerated this well. She was advised to follow-up with her primary care doctor as needed. She was advised to return if any concerns. Last Vital Signs Date Time Temp Pulse Resp B/P (MAP) Pulse Ox O2 Delivery O2 Flow Rate FiO2 02/06/20 13:40 98.9 86 17 124/76 99 Room Air Status: improved Disposition: HOME, SELF-CARE Condition: Stable Patient Instructions: Wound Closure Removal Additional Instructions: Follow up with your doctor as needed. Return if any concerns Bobby Head MD Feb 06, 2020 13:55
== END 2020-02-06 14:30 | disposition home or self-care (01) ==
LOC: EMR 13:40
DX: Z48.02 Encounter for removal of sutures (principal); Z88.8 Allergy status to other drugs, medicaments and biological substances; E78.00 Pure hypercholesterolemia, unspecified
CPT/HCPCS: 99281